=== PATIENT | male | born 1945 | race Caucasian/White ===

== ENCOUNTER 2024-07-03 23:54 | Observation (INO) | payer OTHER ==
[2024-07-04 00:08] VITALS: BMI 25.7
[2024-07-04] MEDS ORDERED: Senokot S 8.6-50 MG TAB PO PRN (00:22)
[2024-07-04] MEDS ORDERED: Calcium Carbonate 500 MG ChewTAB PO PRN (00:22)
[2024-07-04] MEDS ORDERED: Acetaminophen 650 MG Suppository PR PRN (00:22)
[2024-07-04] MEDS ORDERED: Ondansetron PF 4 MG/2 ML Vial IVP PRN (00:22)
[2024-07-04] MEDS ORDERED: Meclizine HCl 12.5 MG TAB PO PRN (00:24)
[2024-07-04] MEDS: Famotidine/PF 20 mg/2ml Vial SLOW IVP SCH (01:14)
[2024-07-04] MEDS: predniSONE 20 MG TAB PO SCH (01:15)
[2024-07-04] MEDS: Meclizine HCl 12.5 MG TAB PO SCH (01:15)
[2024-07-04] MEDS: Oxymetazoline HCl 0.05% ( 15 ML ) NASAL SCH ×2 (01:15→10:27)
[2024-07-04] MEDS: Amoxicillin/Potassium Clav 875 MG TAB PO SCH ×2 (01:16→10:25)
[2024-07-04 05:16] LABS: Cardiac Risk 4.3 (Less than 4.5); Cholesterol 182 mg/dl (< 200 Desired); HDL Cholesterol 42 mg/dL (>60 Neg Risk); LDL Cholesterol, Calculated 118 mg/dL; Magnesium 2.3 mg/dL (1.6-2.6); Triglycerides 108 mg/dL (Less than 150)
[2024-07-04] MEDS ORDERED: GLUCOSAMINE HCL 1500 MG PO SCH (09:00)
[2024-07-04] MEDS: Mesalamine DR 400 mg Capsule PO SCH (10:23)
[2024-07-04] MEDS: Fish Oil 1,000 MG CAP PO SCH (10:24)
[2024-07-04] MEDS: Aspirin 81 mg Enteric Coated Tablet PO SCH (10:24)
[2024-07-04] MEDS: Lisinopril 20 MG TAB PO SCH (10:24)
[2024-07-04] MEDS: Finasteride 5 MG TAB PO SCH (10:24)
[2024-07-04] MEDS: Multivit, Therapeutic 1 TAB PO SCH (10:24)
[2024-07-04] MEDS: Loratadine 10 MG TAB PO SCH (10:24)
[2024-07-04] MEDS: Enoxaparin 40 MG (0.4 mL) SYRINGE SC SCH (10:25)
[2024-07-04] MEDS: Trospium 20 MG TAB PO SCH (10:28)
[2024-07-04 12:29] VITALS: BP 133/71; TEMP 98.2
[2024-07-04] MEDS: FLU (Fluad Triv) TS24-25 (65UP)/MF59C/PF 45 MCG/0.5 ML Syringe IM ONE (13:37)
[2024-07-04] MEDS ORDERED: Atorvastatin Calcium 10 MG TAB PO SCH (21:00)
== END 2024-07-04 14:49 | disposition home or self-care (01) ==
LOC: CSHTELE 23:54 → UNDOADMOB 23:54 → INTOOBSV 23:54 → CSHTELE 07-04 00:22
PROVIDERS: ADMIT Student in an Organized Health Care Education/Training Program; ATTEND Internal Medicine
DX: R42 Dizziness and giddiness (principal); H66.92 Otitis media, unspecified, left ear; E78.5 Hyperlipidemia, unspecified; I12.9 Hypertensive chronic kidney disease with stage 1 through stage 4 chronic kidney disease, or unspecified chronic kidney disease; N18.2 Chronic kidney disease, stage 2 (mild); D64.9 Anemia, unspecified; K51.90 Ulcerative colitis, unspecified, without complications
CPT/HCPCS: 70551; 80061; 83735; 84443; 93880; 96372; 96374; G0378; J1650; J3490; 36415; J7512